=== PATIENT | male | born 1975 | race Caucasian/White ===

== ENCOUNTER → 2019-08-07 12:26 | Outpatient (CLI) | payer OTHER, SELFPAY ==
[2019-07-12 15:28] VITALS: BMI 23.8
--- NOTE | 2019-08-07 12:27 | STE_ITS ---
Reason For Study: chest pain Stress Results Protocol: SHANNON Maximum Predicted HR: 177 bpm Target HR: 150 bpm % Maximum Predicted HR: 113 % DurationHeart Rate Stage (mm:ss) (bpm) BP baseline 107 168/90 stage 1 3:00 116 158/100 stage 2 3:00 122 164/102 stage 3 3:00 146 162/100 stage 4 3:00 171 170/108 stage 5 3:00 193 180/110 stage 6 0:30 200 / recovery 129 138/86 Stress Duration: 15:30 mm:ss Maximum Stress HR: 200 bpm Baseline Echocardiogram Findings Stress Echo Wall motion Data Resting WM Intermediate WM Stress WM Interpretation Summary Exercise stress echo. 44-year-old man with a history of palpitations. Stress protocol: Resting EKG demonstrates normal sinus rhythm with a rate of 104 bpm. The resting blood pressure is 168/90 mmHg. The patient exercised according to regular Shannon protocol for a total duration of 15 minutes and 30 seconds completing 30 seconds into stage of the Shannon protocol the maximum heart rate attained was 200 bpm which was 112% of maximum predicted heart rate the maximum workload was 18.7 metabolic equivalents. At rest there were no ST or T wave changes no suggest ischemia peak exercise upsloping ST changes only were noted with no meet the criteria for ischemia. No clinical angina was noted. The test was terminated due to target heart rate being achieved. The resting blood pressure was 168/90 with a peak blood pressure 198/98 mmHg. Stress echocardiographic images. The resting echocardiogram demonstrated ejection fraction of 55% no obvious wall motion abnormalities were noted. The patient exercised according to Shannon protocol at peak exercise the estimated ejection fraction was noted to be 65 to 70% with no wall motion abnormalities to suggest ischemia. There was thickening of all ventricular lezama and reduction of the ventricular cavity size. Conclusion: Exercise stress test with no EKG criteria for ischemia at a high workload Stress echocardiographic images with no evidence of ischemia No arrhythmias noted Excellent functional capacity. This is a low risk stress test Ordering Physician: Troy Sumner Referring Physician: Troy Sumner Performed By: Fely Hogan, RDCS, RVT
== END ==
PROVIDERS: Family Provider Family Medicine; PCP Family Medicine; Referring Provider Internal Medicine Cardiovascular Disease; Visit Provider Internal Medicine Cardiovascular Disease
DX: R07.9 Chest pain, unspecified (principal)
CPT/HCPCS: 93017; 93350

== ENCOUNTER → 2019-08-10 12:40 | Outpatient (CLI) | payer SELFPAY ==
[2019-07-12 15:28] VITALS: BMI 23.8
--- NOTE | 2019-08-10 12:45 | CT_ITS ---
STUDY: CARDIAC CALCIUM SCORING - CT CHEST REASON FOR EXAM: Male, 44 years old. Chest pain. RADIATION DOSAGE (If Supplied By Facility): CTDIvol = ( 0 ) mGy, DLP = ( 0 ) mGycm TECHNIQUE: Axial non-enhanced images were acquired through the heart for the sole purpose of measuring coronary artery calcium. Individualized dose optimization techniques were used for this CT. COMPARISON: None. FINDINGS: This portion of the report is being generated solely for the evaluation of noncoronary artery structures which have been assessed on plain another report. The visualized lungs are well expanded and free of infiltrate or mass. The heart is normal in size. There are minimal coronary artery calcification. There is no pericardial abnormality. Normal visualized mediastinum and luke. Normal visualized pulmonary arteries and thoracic aorta. Minimal degenerative changes of the thoracic spine. Normal upper abdomen. CT/Limited Chest CT w/CCTA IMPRESSION: No gross anatomic abnormality. Electronically Signed: Kofi Augustin DO at 17:42 EST Tel [phone], Service support ,
[2019-08-10 12:54] VITALS: BP 154/94; PULSE 72; RESP 18; O2SAT 100; BMI 24.6
--- NOTE | 2019-08-11 08:08 | CA.SCORE ---
Calcium Scoring Date of Study:: 08/10/19 Coronary Calcium Scoring: High-resolution Computed Tomographic imaging of the chest was performed on [08/10/2019], with particular attention paid to the coronary arteries. Images from the examination were analyzed for the presence and extent of coronary artery calcification , using coronary calcium quantification software. The patient tolerated the procedure well and there were no complications. The results of the coronary calcification analysis are provided below. - Findings Left Main (LM): 13.5 Left Anterior Descending (LAD): 0 Left Circumflex (LCX): 0 Right Coronary Artery (RCA): 0 Total Agatston Score: 13.5 Calcium Scoring Interpretation: 0 No identifiable atherosclerotic plaque. Very low cardiovascular disease risk. <5% chance of presence coronary artery disease A Negative Examination 1-10 Minimal Plaque burden. Significant coronary artery disease very unlikely. 11-100 Mild plaque burden. Likely mild or minimal coronary atherosclerosis. 101-400 Moderate plaque burden Moderate non-obstructive coronary artery disease highly likely. Over 400 Extensive plaque burden. High likelihood of at least one significant coronary stenosis (>50% diameter) Calcium Score: 11 - 100 Likely mild or minimal coronary stenosis - The above is suggestive of minimal atherosclerotic cardiovascular plaquing. Continue aggressive risk factor modification.
== END ==
PROVIDERS: Family Provider Family Medicine; PCP Family Medicine; Referring Provider Internal Medicine Cardiovascular Disease; Visit Provider Internal Medicine Cardiovascular Disease
DX: R07.9 Chest pain, unspecified (principal)
CPT/HCPCS: 75571; 76380

== ENCOUNTER 2020-05-20 19:37 | Emergency (ER) | payer OTHER, SELFPAY ==
[2019-08-10 12:54] VITALS: BMI 24.6
[2020-05-20 19:38] VITALS: BP 174/101; PULSE 95; RESP 16; TEMP 36.3; O2SAT 100; BMI 25.8
[2020-05-20 19:53] LABS: Mucous, Urine 0 SEEN /hpf (<or=2+); Red Blood Cells-Urine 0 SEEN /hpf (0-5); Squamous Epithelial Cells - UA 0 SEEN /hpf (0-5); White Blood Cells 0 SEEN /hpf (0-5)
[2020-05-20 19:59] LABS: Color, Urine Yellow (Yellow); Glucose, Dipstick Normal (Normal); Ketone-Dipstick Negative (Negative); Leukocyte Esterase-Dipstick Negative /ul (Negative); Nitrite-Dipstick Negative (Negative); Occult Blood-Urine Negative /ul (Negative); Protein-Dipstick Negative (Negative); Urine Bilirubin Dipstick Negative (Negative); Urine Clarity Sl. Cloudy (Clear); Urine Urobilinogen Normal (Normal); Urine pH 6.5 (5.0 - 8.0)
[2020-05-20 20:24] LABS: Bacteria 1+ /hpf (None Seen)
[2020-05-20 21:45] VITALS: BP 153/101; PULSE 91; RESP 16; O2SAT 99
--- NOTE | 2020-05-20 22:15 | CT_ITS ---
STUDY: CT ABDOMEN AND PELVIS WITHOUT CONTRAST REASON FOR EXAM: Male, 45 years old. UMBILICAL PAIN DOWN TO TESTICLES AND RECTUM X 1 MONTH, HERNIA SX IN PAST, [place] AGE 12 RADIATION DOSAGE (If Supplied By Facility): CTDIvol = ( 6.17 ) mGy, DLP = ( 348.48 ) mGycm TECHNIQUE: Transaxial images were obtained from the dome of the diaphragm to the symphysis pubis without oral contrast, and without intravenous contrast. Sagittal and coronal images were reconstructed. Individualized dose optimization techniques were used for this CT. COMPARISON: CT chest August 10, 2019 FINDINGS: The visualized lung bases are unremarkable. The visualized portions of the heart are within normal limits. Normal liver. Normal gallbladder and extrahepatic biliary system. Normal spleen. Normal pancreas. Normal bilateral adrenal glands. There is a 5.7 mm stone right kidney. There is no evidence of hydronephrosis. Normal left kidney. Normal visualized stomach. Normal small intestine. There is moderate stool in the colon from the cecum to the rectum. There is a low-lying appearance of the cecum with stool. The appendix is visualized and appears normal. Normal abdominal aorta. Normal inferior vena cava. Normal retroperitoneum. There is a bulge of the bladder towards the right side where there is visualized postoperative change in the pelvis status post hernia repair. Prostate measures 4 x 4 0.3 x 4 cm. There is a small left fatty inguinal hernia. Normal abdominal wall. There are diffuse degenerative changes of the visualized lumbar spine. CT/Abdomen/Pelvis without Cont IMPRESSION: Right renal stone measuring approximately 5.7 mm. No evidence of ureteral stone or hydronephrosis. Moderate constipation. Postoperative changes right inguinal region without visualized inflammatory change. Electronically Signed: Radha Anthony MD at 0:00 EDT Tel , Service support ,
[2020-05-21 00:18] LABS: Absolute Lymphocyte Count 2.58 X10^3/uL (0.83-4.51); Absolute Neutrophil Count 4.6 X10^3/uL (2.0-7.7); Basophil# 0.04 X10^3/uL; Basophil% 0.5 % (0-1); Eosinophils% 1.2 % (0-5); Hematocrit 44.5 % (40-54); Hemoglobin 15.3 g/dL (13.0-16.5); Lymphocyte # 2.58 X10^3/ul (4.0); Lymphocyte % 31.8 % (19-41); Mean Corp Hgb Conc 34.4 g/dL (32-36); Mean Corpuscular Hgb 31.2 pg (27.0-32.0); Mean Corpuscular Volume 90.6 fL (80-94); Mean Platelet Vol. 9.6 fl (6.2-12.0); Monocyte# 0.82 X10^3/uL; Monocyte% 10.1 % (0-10); NRBC Flagged by Analyzer 0 % (0-5); Neutrophil # 4.55 X10^3/uL (2.7-7.7); Neutrophil % 56.2 % (47-70); Platelet Count 276 K/mm3 (150-450); RBC Distribution Width CV 12.3 % (11.6-14.6); RBC Distribution Width SD 40.7 fl (35.1-43.9); Red Blood Count 4.91 M/mm3 (4.6-6.2); White Blood Count 8.1 K/mm3 (4.4-11.0)
[2020-05-21 00:36] LABS: Anion Gap 5 (5-15); BUN 12 mg/dL (7-18); BUN/Creat Ratio 11.8 RATIO (10-20); Calcium,Total 8.8 mg/dL (8.5-10.1); Chloride 106 mmol/L (98-107); Creatinine, Serum 1.02 mg/dL (0.70-1.30); EST Glomerular Filtration Rate 84 mL/min (>60); Est Glom Filt Rate - Afr Amer 102 mL/min (>60); Estimated Creatinine Clearance 89.41 ml/min; Glucose 101 mg/dL (74-106); Potassium 3.8 mmol/L (3.5-5.1); Sodium Level 140 mmol/L (136-145)
--- NOTE | 2020-05-21 00:56 | ED.VIS.GEN ---
History of Present Illness Chief Complaint: Abd Pain Informant: Patient Onset: Month(s) - 1 month Context: Gradual Onset Timing: Waxes and wanes Current Severity: Mild Maximum Severity: Moderate Narrative: Patient presents with a 1 month history of waxing and waning suprapubic pain with some radiation into the testicles. He does state that he was injured about a month ago and is not sure if this caused his symptoms. He does not have dysuria or hematuria. He does not have back pain. No fevers or chills. He does have a remote history of a right inguinal hernia repair. Past Medical History - Allergies and Home Meds Allergies/Adverse Reactions: Allergies No Known Allergies Allergy (Unverified 05/20/20 19:40) Primary Care Physician: Veena Aldrich DO [Primary Care Provider] - Pablo Rosales MD [STAFF PHYSICIAN] - 10-14 Days if not better Past Medical History: None Surgical History: - - Right inguinal hernia Lives: With Family Smoking Status: Never smoker Review of Systems General: Denies: Chills, Fever Eyes: Denies: Visual changes - bilaterally ENT: Denies: Bilateral ear pain Cardiovascular: Denies: Chest pain Respiratory: Denies: Dyspnea, Cough Gastrointestinal: Reports: Abdominal pain. Denies: Nausea, Vomiting, Diarrhea Genitourinary: Denies: Dysuria Musculoskeletal: Denies: Swelling, Extremity Pain Skin: Denies: Rash Hematologic: Denies: Easy bruising, Easy bleeding Allergy: Denies: Uticaria Physical Exam Vital Signs/Narrative: Vital Signs Pulse Resp BP Pulse Ox 05/20/20 21:45 91 16 153/101 H 99 Inital Vital Signs reviewed: Yes General: Well nourished, Well developed Head: Normocephalic ENT: Moist mucous membranes Neck: Supple Cardiovascular: Regular rate, Regular rhythm Respiratory: No distress, CTA bilaterally Abdomen: Soft, Tender - Suprapubic tenderness to palpation.. Negative for: Guarding, Rebound tenderness Extremities: Nontender Skin: Normal color Neurological: Alert, Oriented x3, Normal Strength, Normal Sensation Psychological: Normal affect Diagnostic/Tx/Re-eval Impressions Abdomen/Pelvis CT 05/20/20 22:15 IMPRESSION: Right renal stone measuring approximately 5.7 mm. No evidence of ureteral stone or hydronephrosis. Moderate constipation. Postoperative changes right inguinal region without visualized inflammatory change. Electronically Signed: Radha Raj, MD at 0:00 EDT Tel , Service support , 05/20/20 22:15 Abdomen/Pelvis without Cont [CT] Stat Laboratory Results 05/20/20 05/20/20 05/20/20 19:47 23:59 23:59 WBC 8.1 RBC 4.91 Hgb 15.3 Hct 44.5 MCV 90.6 MCH 31.2 MCHC 34.4 RDW Std Deviation 40.7 RDW Coeff of Howard 12.3 Plt Count 276 MPV 9.6 Immature Gran % (Auto) 0.200 Neut % (Auto) 56.2 Lymph % (Auto) 31.8 [place] % (Auto) 10.1 H Eos % (Auto) 1.2 Baso % (Auto) 0.5 Absolute Neuts (auto) 4.6 Absolute Lymphs (auto) 2.58 Nucleated RBC % 0 Sodium 140 Potassium 3.8 Chloride 106 Carbon Dioxide 29.0 Anion Gap 5 BUN 12 Creatinine 1.02 Estim Creat Clear Calc 89.41 Est GFR (MDRD) Af Amer 102 Est GFR (MDRD) Non-Af 84 BUN/Creatinine Ratio 11.8 Glucose 101 Calcium 8.8 Urine Color Yellow Urine Clarity Sl. Cloudy Urine pH 6.5 Ur Specific [place] 1.020 Urine Protein Negative Urine Glucose (UA) Normal Urine Ketones Negative Urine Occult Blood Negative Urine Nitrite Negative Urine Bilirubin Negative Urine Urobilinogen Normal Ur Leukocyte Esterase Negative Urine RBC 0 SEEN Urine WBC 0 SEEN Ur Squamous Epith Cells 0 SEEN Urine Bacteria 1+ Urine Mucus 0 SEEN - Medical Decision Making Patient declined anything for pain while in the emergency room. Test results discussed with patient and at bedside. He does have evidence of right renal stone. He may be passing small pieces of this causing intermittent pain. No evidence of hematuria at this time. Patient will take anti-inflammatories for the next 7 days. If not improved he is referred to Dr. Rosales for follow-up and further evaluation. ED Disposition - Plan for ED Patient: Disposition: Home or Assisted Living Diagnosis: Flank pain Instructions: ED Flank Pain Uncertain Cause Referrals: Veena Aldrich DO [Primary Care Provider] - Pablo Rosales MD [STAFF PHYSICIAN] - 10-14 Days if not better
[2020-05-21 01:12] VITALS: BP 142/98; PULSE 77; RESP 16; O2SAT 96
== END 2020-05-21 01:13 | disposition home or self-care (01) ==
PROVIDERS: Emergency Provider Emergency Medicine; PCP Family Medicine
DX: R10.2 Pelvic and perineal pain (principal); K59.00 Constipation, unspecified; R10.9 Unspecified abdominal pain
CPT/HCPCS: 74176; 80048; 81001; 85025; 99283

== ENCOUNTER → 2024-12-27 | Outpatient (CLI) | payer OTHER, SELFPAY | END | disposition home or self-care (01) | PROVIDERS: PCP Family Medicine; Referring Provider Otolaryngology Otolaryngology/Facial Plastic Surgery; Visit Provider Otolaryngology Otolaryngology/Facial Plastic Surgery | DX: J32.9 Chronic sinusitis, unspecified (principal) | CPT/HCPCS: 87070; 87077; 87186; 87205 ==